=== PATIENT | female | born 1995 | race African-American/Black ===

== ENCOUNTER 2023-06-27 15:17 | Emergency (ER) | payer MEDICAID, OTHER ==
[~2023-06-27] VITALS: Ht 165.1 cm; Wt 107.7 kg
[2023-06-27 15:37] VITALS: BP 92/65; PULSE 85; RESP 16; O2SAT 98
[2023-06-27 20:17] LABS: Urine Bacteria FEW /hpf (None Seen); Urine Blood Negative /uL (Negative); Urine Clarity HAZY (Clear); Urine Color Yellow (Yellow); Urine Mucus FEW (None Seen); Urine Protein, UAD TRACE (Negative); Urine Specific Gravity 1.027 (1.001-1.035); Urine Urobilinogen Normal (Negative); Urine WBC 1 /hpf (0 - 5)
== END 2023-06-28 04:24 | disposition left against medical advice (07) ==
LOC: ER 15:17
DX: R51.9 Headache, unspecified (principal)
CPT/HCPCS: 70450; 81001